=== PATIENT | female | born 1985 | race Caucasian/White ===

== ENCOUNTER 2016-08-31 15:05 | Emergency (ER) | payer SELFPAY ==
[~2016-08-31] VITALS: Ht 172.7 cm; Wt 124.3 kg
[2016-08-31 15:44] VITALS: BP 142/71; PULSE 89; RESP 16; TEMP 98.4; O2SAT 97
--- NOTE | 2016-08-31 16:33 | PD ---
HPI Chief Complaint: ENT Complaint Time Seen by Provider: 16:00 Travel History International Travel<30 days: No Contact w/Intl Traveler<30days: No Traveled to known affect area: No History of Present Illness HPI 31-year-old female presents to the emergency room for evaluation of bilateral ear pain and sore throat for the past 5 days. She reports history of feeling feverish but did not actually take her temperature. Sore throat is worsened with eating, drinking, swallowing. She's been taking ibuprofen without significant relief in symptoms. She has history of strep several months ago and states that felt worse than this does. She is concerned because there are exudates on her right tonsil. Denies ear drainage, cough, congestion, nausea, and vomiting. Only history of psoriasis. PFSH Past Medical History Integumentary: Yes (PSORIASIS) ?: Not LMP: 08/23/16 Past Surgical History Surgical History: No Previous Surgery Social History Alcohol Use: No Tobacco Use: Yes (1/2 PPD) Allergies-Medications (Allergen,Severity, Reaction): Coded Allergies: Sulfa (Verified Allergy, Mild, 08/31/16) Reported Meds & Prescriptions Reported Meds & Active Scripts Active Magic Mouthwash Pediatric/Adult Liq (Lidocaine/Diphenhydr/Alum/Mg/Simeth) 60 Ml Susp 60 Ml SWISH-SWAL ACHS Each 5mL contains: Diphenydramine 4.5mg, Viscous Lidocaine 2% 10mg, Maalox Advanced Regular Strength 2.7ml Review of Systems Except as stated in HPI: all other systems reviewed are Neg Physical Exam Narrative GENERAL: Well-nourished, well-developed female in no acute distress. Afebrile. Ambulatory. SKIN: Focused skin assessment warm/dry. HEAD: Normocephalic. EYES: No scleral icterus. No injection or drainage. NECK: Supple, trachea midline. No JVD or lymphadenopathy. EARS: Bilateral pinnae and external canals appear within normal limits. Bilateral tympanic membranes without erythema or perforation. Air-fluid levels in bilateral tympanic membranes. ENT: Mucosa pink and moist.mild erythema and right-sided exudates. Tonsils 2+. No uvular edema. No uvular, palatal, or tonsillar deviation. Airway patent. CARDIOVASCULAR: Regular rate and rhythm without murmurs, gallops, or rubs. RESPIRATORY: Breath sounds equal bilaterally. No accessory muscle use. GASTROINTESTINAL: Abdomen soft, non-tender, nondistended. MUSCULOSKELETAL: No cyanosis, or edema. BACK: Nontender without obvious deformity. No CVA tenderness. Data Data Last Documented VS Vital Signs Date Time Temp Pulse Resp B/P Pulse Ox O2 Delivery O2 Flow Rate FiO2 08/31/16 15:44 98.4 89 16 142/71 97 Orders Group A Rapid Strep Screen (08/31/16 16:17) MDM Medical Decision Making Medical Screen Exam Complete: Yes Emergency Medical Condition: Yes Medical Record Reviewed: Yes Differential Diagnosis Streptococcal pharyngitis, eustachian tube dysfunction, otitis media, upper respiratory infection Narrative Course 31-year-old female presents to the emergency room for evaluation of sore throat and bilateral ear pain for the past 5 days. Patient is afebrile and well- appearing in the emergency room. No objective fevers at home. Physical exam reveals moderate erythema and right-sided exudates. Tonsils 2+. No evidence of otitis media but there are air-fluid levels and bilateral tympanic membranes. This is eustachian tube dysfunction. Rapid strep is negative. Patient has had pharyngitis. Discharged with prescription for Magic mouthwash and told to follow up with primary care physician or return for worsening symptoms. She understands and agrees to plan. Diagnosis Primary Impression: Acute viral pharyngitis Additional Impression: Eustachian tube dysfunction Qualified Code: H69.83 - Eustachian tube dysfunction, bilateral Referrals: Primary Care Physician Patient Instructions: General Instructions, Pharyngitis (ED) Additional Instructions: Rest and drink plenty of fluids. Use Magic mouthwash as directed, as needed for pain. Take ibuprofen with food as directed, as needed for pain. Follow-up with a primary care physician. Return to the emergency room for worsening symptoms. Med/Other Pt SpecificInfo: Prescription(s) given Scripts Zzqlyiqfvdclreb-Pitnyqlrx-Cfn-Alum-Simeth Liq (Magic Mouthwash Pediatric/Adult Liq)60 Ml Susp60 Ml SWISH-SWAL ACHS #60 ML Ref 0 Each 5mL contains: Diphenydramine 4.5mg, Viscous Lidocaine 2% 10mg, Maalox Advanced Regular Strength 2.7ml Prov:Nito Menard MD 08/31/16 Disposition: 01 DISCHARGE HOME Condition: Stable Luiza Diehl Aug 31, 2016 16:33
[2016-08-31] MEDS ORDERED: MAGICPED SWISH-SWAL (16:40)
== END 2016-08-31 16:46 | disposition home or self-care (01) ==
LOC: PHEFT 15:05
DX: J02.9 Acute pharyngitis, unspecified (principal); H69.83 Other specified disorders of Eustachian tube, bilateral
CPT/HCPCS: 87081; 87880; 99283